=== PATIENT | female | born 1970 | race Caucasian/White ===

== ENCOUNTER → 2017-05-04 | Outpatient (CLI) | payer OTHER ==
[~2017-05-04] MED LIST: AMOXICILLIN 50500 MG PO; CELEBREX 200MG200 MG PO; COREG 3.123.125 MG/T PO; FLEXERIL 1010 MG/TAB PO; HCTZ 25MG TAB25 MG PO; HCTZ12.5TAB; HYGROTON 2525 MG/TAB; K-DUR 2020 MEQ PO; LOPRESSOR 225 MG/TAB PO; NAPROSYN500 MG PO; NO HOME MEDICATIONS; NORCO 325 MG-51 TAB PO; PRINIVIL2.5 MG PO; TOPROL XL 25MG25 MG PO; UNABLE; ZANTAC 150150 MG; ZANTAC 150MG T150 MG PO; ZESTRIL40 MG PO
== END ==
LOC: MC.RAD 13:29
DX: Z12.31 Encounter for screening mammogram for malignant neoplasm of breast (principal)

== ENCOUNTER → 2017-05-12 | Outpatient (CLI) | payer OTHER | LOC: COL.VAS 13:36 | DX: R93.8 Abnormal findings on diagnostic imaging of other specified body structures (principal); I10 Essential (primary) hypertension; R01.1 Cardiac murmur, unspecified ==

== ENCOUNTER 2018-03-11 19:34 | Emergency (ER) | payer OTHER ==
[~2018-03-11] VITALS: Ht 170.2 cm; Wt 133.2 kg
[2018-03-11 19:38] VITALS: BP 129/72; PULSE 131; TEMP 97.8
[2018-03-11] MEDS ORDERED: ASPIRIN 81M81 MG/TA2 PO (19:53)
[2018-03-11] MEDS ORDERED: INDOCIN50 MG PO (19:53)
== END 2018-03-11 20:04 | disposition home or self-care (01) ==
LOC: COL.ER 19:34
DX: M10.9 Gout, unspecified (principal); Z79.82 Long term (current) use of aspirin

== ENCOUNTER → 2018-08-26 | Outpatient (CLI) | payer OTHER ==
[~2018-08-26] MED LIST changes: +ASPIRIN 81M81 MG/TA2 PO; +INDOCIN50 MG PO
== END ==
LOC: MC.RAD 10:49
DX: Z12.31 Encounter for screening mammogram for malignant neoplasm of breast (principal)

== ENCOUNTER → 2019-10-20 | Outpatient (CLI) | payer OTHER | LOC: MC.RAD 08-26 13:00 | DX: Z12.31 Encounter for screening mammogram for malignant neoplasm of breast (principal) ==

== ENCOUNTER 2020-07-18 22:03 | Emergency (ER) | payer OTHER ==
[~2020-07-18] VITALS: Ht 167.6 cm; Wt 143.2 kg
[2020-07-18 22:06] VITALS: TEMP 98.4
[2020-07-18 22:26] LABS: BASO # 0.1 (0.0-0.2); BASO % 0.7 % (0.0-2.0); EOS # 0.5 (0.0-0.7); EOS % 3.8 % (0-4.0); GRAN # 6.9 (1.4-6.5); GRAN % 51.2 % (42.2-75.2); HEMATOCRIT 41.9 % (37.0-47.0); HEMOGLOBIN 13.9 g/dl (12.5-16.0); LYMPH # 4.7 (1.2-3.4); MEAN CELL VOLUME 90 fl (80.0-100.0); MEAN CORPUSCULAR HEMOGLOBIN 30 pg (27.0-31.0); MEAN CORPUSCULAR HGB CONC 33 g/dl (33.0-37.0); MEAN PLATELET VOLUME 10.4 fl (7.4-10.4); MONO # 1.2 (0.1-0.6); MONO % 8.8 % (1.7-9.3); PLATELET COUNT 301 K/mm3 (130-400); RED BLOOD COUNT 4.66 M/mm3 (4.10-5.30); REDCELL DISTRIBUTION WIDTH-CV 13.1 % (11.5-14.5)
[2020-07-18 22:37] LABS: ALANINE AMINOTRANSFERASE 26 U/L (4-34); ALBUMIN 4.3 gm/dL (3.5-5.0); ALKALINE PHOSPHATASE 62 U/L (50-136); ANION GAP 11 mmol/L (7-16); AST,SGOT 27 U/L (15-37); BILIRUBIN,TOTAL 0.5 mg/dL (0.0-1.0); BLOOD UREA NITROGEN 21 mg/dL (7-17); CALCIUM 8.7 mg/dL (8.4-10.2); CARBON DIOXIDE 27 mmol/L (22-30); CHLORIDE 99 mmol/L (98-107); CREATININE, serum 0.74 (0.52-1.25); GLUCOSE 110 mg/dL (74-106); PROTHROMBIN TIME 11.3 SECONDS (9.7-12.8); SODIUM 137 mmol/L (137-145); TOTAL PROTEIN 7.6 gm/dL (6.4-8.2)
[2020-07-18 22:40] LABS: PARTIAL THROMBOPLASTIN TIME 18.9 SECONDS (26.0-37.0)
[2020-07-18 22:48] LABS: TROPONIN-I < 0.012 ng/mL (0.000-0.035)
[2020-07-19] MEDS ORDERED: CLARITIN 1010 MG/TAB PO (01:03)
[2020-07-19] MEDS ORDERED: PEPCID 20MG TAB20 MG (01:03)
[2020-07-19] MEDS ORDERED: VITAMIN D31000 I1 (01:04)
[2020-07-19] MEDS ORDERED: EPA FISH OIL1 SGL PO (01:04)
[2020-07-19 03:09] VITALS: BP 146/84; PULSE 117
== END 2020-07-19 03:09 | disposition left against medical advice (07) ==
LOC: COL.ER 22:03
PROVIDERS: Emergency Medicine
DX: R47.01 Aphasia (principal); I16.0 Hypertensive urgency; I10 Essential (primary) hypertension; Z86.73 Personal history of transient ischemic attack (TIA), and cerebral infarction without residual deficits; Z88.8 Allergy status to other drugs, medicaments and biological substances; Z87.891 Personal history of nicotine dependence; Z79.82 Long term (current) use of aspirin
CPT/HCPCS: 99223-AI; J7030; J7050; Q9967

== ENCOUNTER → 2020-10-22 | Outpatient (CLI) | payer OTHER ==
[~2020-10-22] MED LIST changes: +CLARITIN 1010 MG/TAB PO; +EPA FISH OIL1 SGL PO; +PEPCID 20MG TAB20 MG; +VITAMIN D31000 I1
== END ==
LOC: MC.RAD 12:43
DX: Z12.31 Encounter for screening mammogram for malignant neoplasm of breast (principal)